=== PATIENT | male | born 1965 | race Caucasian/White ===

== ENCOUNTER 2022-05-19 14:03 | Outpatient (REF) | payer OTHER, SELFPAY ==
[2022-05-20 11:15] LABS: COVID-19 RT-PCR UVMMC Result Negative (Negative)
== END 2022-05-19 14:04 | disposition home or self-care (01) ==
LOC: LBN 14:03
PROVIDERS: Visit Provider Nurse Practitioner Family
DX: Z11.52 Encounter for screening for COVID-19 (principal); Z20.822 Contact with and (suspected) exposure to COVID-19
CPT/HCPCS: U0003